=== PATIENT | female | born 1950 | race Two or more races ===

== ENCOUNTER 2024-10-28 18:16 | Emergency (ER) | payer OTHER ==
[~2024-10-28] VITALS: Ht 152.4 cm; Wt 52.1 kg
--- NOTE | 2024-10-28 18:46 | ED.PDOC ---
HPI (NEURO) HPI Comments 74y F who presents to the ED for chief complaint of R sided upper extremity weakness. - per daughter, pt was at family gathering and told family members she started to have R arm and R shoulder weakness at around [id number] - pt was taken to [facility] urgent care and referred to the ED for further evaluation - pt in the ED, notes, she has prior CVA 2 1/2 years prior with noted residual deficits of R facial weakness but otherwise no noted deficits. - pt in the ED, notes, this R arm and R shoulder weakness is new - pt daughter states pt was able to get up earlier this AM and get ready and was normal and alert and oriented and this weakness started only at [id number] this afternoon - pt denies use of any blood thinner at this time, per daughter Code stroke was activated immediately. 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 REVIEW OF SYSTEMS: CONSTITUTIONAL: Denies acute: fever, diaphoresis, chills, generalized weakness. HEAD: Denies acute: headache, photophobia Eyes: Denies acute: Double vision, vision loss, eye pain, eye discharge. EARS: Denies acute: tinnitus, hearing loss, ear discharge, ear pain, THROAT: Denies acute: sore throat, swelling, difficulty swallowing , pain with swallowing, change in voice. NECK: Denies acute: neck pain, neck swelling, stiff neck. HEART: Denies acute : chest pain, palpitations, LUNGS: Denies acute: SOB, wheezing, cough, hemoptysis ABDOMEN: Denies acute: abdominal pain, Nausea, Vomiting, diarrhea, melena , hematemesis, hematochezia SKIN: Denies acute: rash, redness, lesions, itchiness. EXTREMITIES: Denies acute: calf pain, numbness, tingling, weakness, denies pain in extremity. Denies acute: Low back pain. Neuro: Denies acute: tremors, seizure like activity, confusion, dizziness, change in mental status, loss of bowel or bladder function, cauda equina like symptoms. : Denies acute: dysuria, hematuria, flank pain, increase in urinary frequency. PSYCH: Denies acute: hallucination, suicidal ideation, homicidal ideation. FEMALE: Denies acute: abnormal vaginal bleeding, foul odor, unusual discharge. PHYSICAL EXAM: General: ----mild----acute distress, awake and alert. Head: normocephalic, atraumatic. Neck: supple, trachea is midline, no swelling. Throat: Normal phonation. Eyes:, no erythema, no purulent discharge, no proptosis, no icterus. Heart: regular rate, regular rhythm, no significant murmur appreciated. Lungs: no apparent respiratory distress, Able to speak in full sentences. No wheezing, no rhonchi, no crackles. No stridors Clear to auscultation bilaterally. Abdomen: non tender to palpation, non distended, soft, no guarding, no rebound, + bowel sounds. Neuro: Awake, Alert, oriented to name, self, situation, follows commands GCS=15. Speech is normal. Skin: no petechia, no purpura, no cyanosis, non-pale, not jaundice. Lower extremities: --no - Pitting edema no deformity, no focal swelling, no calf TTP. Makes eye contact. moves all four extremities. Face: Chronic right-sided facial droop with a previous stroke unchanged according to family. Ambulating in the ED independently. Stroke: finger to nose cerebellar testing is intact. But sluggish on the right upper extremity. 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 No nuchal rigidity, Kernig's sign, Brudzinski's sign, no meningeal signs. ED COURSE: At 7:30 p.m. I spoke with [facility] transfer team for higher level of care since we do not have Neurology in-house on the weekend. I spoke with Dr. Manriquez. They are unable to accept the patient because it is not an acute hemorrhagic or need for thrombolytics at this time. They are at capacity. We will continue to find other facilities with in house Neurology consultation At 8:15 p.m. The case was discussed with the [facility] ER team (HPI, physical exam, labs and diagnostic tests that were available at the time of disposition, ED course, treatment plan) on the phone. They agreed to a ccept the patient to their facility for neurological consultation not available in our facility on this weekend. Accepting physician is Dr. Guadarrama. At this time 8:40 p.m. case was discussed with the medicine team again. They still do not want to admit the patient to our facility because we do not have Neurology available this weekend in house. They have assessed the patient and believe that the patient is still have neurological deficits and complaints. 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 We will attempt to transfer the patient to higher level of care Chief Complaint: Right Sided Weakness Time Seen by MD: 18:44 Reviewed Notes: Nurses Notes, Allergies Information Source: Patient, Relative Mode of Arrival: Ambulatory Brought in by: daughter Was a procedure done? Was a procedure done?: No Differential Diagnosis (SZ) Seizure: N/A CVA: Other (Stroke: DDX include TIA, TGA, CVA, intracranial bleed/mass/infection, cerebellar ischemia/infarct, carotid stenosis, lacunar infarct, vertebral/carotid artery dissection,, vertebrobasillary insufficiency, BPV, encephalopathy, electrolyte abnormality, thyroid disease, hydrocephalus, [place] palsy, multiple sclerosis, hypoglycemia, drug toxicity, cardiac arrhythmia, todds paralysis, seizure.) X-Ray, Labs, Meds, VS Vital Signs Date Time Temp Pulse Resp B/P (MAP) Pulse Ox O2 Delivery O2 Flow Rate FiO2 10/28/24 21:30 98.4 79 20 114/49 (70) 92 98.4 10/28/24 20:55 87 22 95 Room Air* 0 21 10/28/24 20:30 98.0 81 18 114/49 (70) 93 98.0 10/28/24 19:30 98.0 83 19 149/66 (93) 92 98.0 10/28/24 18:57 Room Air* 0 21 10/28/24 18:55 98.4 88 22 153/64 (93) 94 98.4 10/28/24 18:21 98.5 81 18 176/88 (117) 96 98.5 Lab Test 10/28/24 21:39 10/28/24 19:52 10/28/24 18:54 10/28/24 18:27 Range/Units Troponin I High Sensitivity Pending 4 4 </=34 ng/L White Blood Count 9.8 4.4-10.8 10^3/uL Red Blood Count 5.21 H 4.0-5.20 10^6/uL Hemoglobin 15.9 12.2-16.2 g/dL Hematocrit 48.1 H 36.0-46.0 % Mean Corpuscular Volume 92.3 80.0-100.0 fL Mean Corpuscular Hemoglobin 30.5 28.0-32.0 pg Mean Corpuscular Hemoglobin Concent 33.0 32.0-36.0 g/dL Red Cell Distribution Width 14.2 11.8-14.3 % Platelet Count 254 140-450 10^3/uL Mean Platelet Volume 8.0 6.9-10.8 fL Neutrophils (%) (Auto) 53.3 37.0-80.0 % Lymphocytes (%) (Auto) 38.1 10.0-50.0 % Monocytes (%) (Auto) 5.9 0.0-12.0 % Eosinophils (%) (Auto) 2.1 0.0-7.0 % Basophils (%) (Auto) 0.6 0.0-2.0 % Neutrophils # (Auto) 5.2 1.6-8.6 10 ^3/uL Lymphocytes # (Auto) 3.7 0.4-5.4 10 ^3/uL Monocytes # (Auto) 0.6 0-1.3 10 ^3/uL Eosinophils # (Auto) 0.2 0-0.8 10 ^3/uL Basophils # (Auto) 0.1 0-0.2 10 ^3/uL Nucleated Red Blood Cells 0.1 % Prothrombin Time 10.1 9.3-11.8 sec Prothrombin Time INR 0.95 0.9-1.15 Activated Partial Thromboplast Time 27.1 24.5-34.5 SEC Sodium Level 138 136-145 mmol/L Potassium Level 4.6 3.5-5.1 mmol/L Chloride Level 104 98-107 mmol/L Carbon Dioxide Level 26 20-31 mmol/L Anion Gap 8 5-15 Blood Urea Nitrogen 20 9-23 mg/dL Creatinine 1.15 H 0.550-1.02 mg/dL Glomerular Filtration Rate Calc 50 >90 mL/min BUN/Creatinine Ratio 17.4 10.0-20.0 Serum Glucose 293 H 74-106 mg/dL Calcium Level 10.4 8.7-10.4 mg/dL Magnesium Level 2.2 1.6-2.6 mg/dL Total Bilirubin 0.4 0.2-1.0 mg/dL Aspartate Amino Transferase (AST) 21 13-40 U/L Alanine Aminotransferase (ALT) 24 7-40 U/L Alkaline Phosphatase 115 46-116 U/L B-Type Natriuretic Peptide 35.96 0-100 pg/mL Total Protein 7.5 5.7-8.2 g/dL Albumin 4.7 3.2-4.8 g/dL POC Glucose 255 H 70-106 mg/dl Current Medications Medications (Trade) Dose Ordered Sig/Mandeep Route Start Time Stop Time Status Last Admin Aspirin (Ecotrin Enteric Coated Tablet) 325 mg ONCE ONCE PO 10/28/24 19:15 10/28/24 19:19 DC 10/28/24 20:00 Clopidogrel Bisulfate (Plavix) 300 mg ONCE ONCE PO 10/28/24 19:30 10/28/24 19:34 DC 10/28/24 20:00 [place] [address] Ph: [phone] DIAGNOSTIC IMAGING Diagnostic Imaging Report : [id number] Signed PATIENT: DARNELL SR ACCT: [id number] UNIT: [id number] : 1950 LOC: ER ROOM / BED: / AGE / SEX: 74 / F ADM STATUS: REG ER SERVICE [id number] ORDERING PHYSICIAN: PIERO TRINIDAD DO PROCEDURE(s): CXR1 - CHEST XRAY 1 VIEW REASON: RUE weakness ORDER NUMBER(s): [id number], ACCESSION NUMBER(s): [id number] CHEST RADIOGRAPH Indication: RUE weakness Technique: Single frontal view of the chest was obtained Comparison: None FINDINGS: Lines and Tubes: None Lungs: No focal consolidation. Pleura: No effusion. No pneumothorax. Cardiomediastinal contours: Unremarkable Bones: No acute osseous abnormality. IMPRESSION: 1. No acute cardiopulmonary disease. ATED BY: TEOFILO HOANG Jr., DO DICTATED DATE/TIME: 10/28/241942 SIGNED BY: TEOFILO HOANG Jr., SIGNED DATE/TIME: 10/28/241942 CC: [address] [address] Ph: [phone] DIAGNOSTIC IMAGING Diagnostic Imaging Report : [id number] Signed PATIENT: DARNELL SR ACCT: [id number] UNIT: [id number] : 1950 LOC: ER ROOM / BED: / AGE / SEX: 74 / F ADM STATUS: REG ER SERVICE 32 ORDERING PHYSICIAN: PIERO TRINIDAD DO PROCEDURE(s): CTH - STROKE CTH REASON: RUE weakness ORDER NUMBER(s): [id number], ACCESSION NUMBER(s): [id number] CT STROKE CTH INDICATION: RUE weakness COMPARISON: None TECHNIQUE: CT of the head without intravenous contrast. RADIATION DOSE: CTDIvol: 51.21 mGy, DLP: 906.89 mGy*cm FINDINGS: No evidence of acute intracranial hemorrhage. No definite acute large territory infarct. There is a small cortical hypodense focus in the left parietal lobe (series 602, image 42) which is age-indeterminate. Mild periventricular and subcortical white matter hypoattenuation is nonspecific but commonly due to chronic microvascular ischemia. The ventricles, sulci and cisterns are age appropriate. Left choroid plexus cyst. CSF density over the bilateral frontal convexities is favored to represent enlargement of the subarachnoid space in the setting of mild cerebral volume loss. Mild atherosclerosis in the carotid siphons. Partially empty sella, commonly age-related. Streak artifact in the posterior fossa. The visualized paranasal sinuses and mastoid air cells are clear. The surrounding soft tissues and osseous structures are unremarkable. IMPRESSION: 1. No acute hemorrhage. No definite acute large territory infarct. 2. Small cortical hypoattenuating focus in the left parietal lobe. This is nonspecific and age-indeterminate. Consider further evaluation with MRI. Critical Result: Stroke Alert Findings discussed with Piero Trinidad, at 10/28/2024 07:11 PM, and acknowledged receipt and understanding of the findings. ATED BY: AJ SUE DO DICTATED DATE/TIME: 10/28/241914 SIGNED BY: AJ SUE DO SIGNED DATE/TIME: 10/28/241914 CC: Time of 1ST Reevaluation: 18:31 (The case was discussed with the stroke team (HPI, physical exam, labs and diagnostic tests that were available at the time of disposition, ED course, treatment plan) on the phone. They agreed to evaluate the patient on tele neuro camera. ) Reevaluation 1ST: Unchanged Time of 2ND Reevaluation: 19:22 (The neurologist called back and said to workup the patient for TIA and start aspirin and Plavix 300 mg then transitioned to 75 mg tomorrow.) Time of 3RD Reevaluation: 19:22 (Our hospitalist said that the patient can not be admitted to our facility since we do not have a neurologist on-call on the weekend. We will have to transfer the patient out.) Patient Education/Counseling: Diagnosis, Treatment Family Education/Counseling: Diagnosis, Treatment Comments Patient presented with the above HPI.--stroke-like symptoms----workup was initiated. patient was found with the above mentioned diagnosis. the following medications were ordered: please refer to order lists of meds and tests obtained by myself Dr. Trinidad. Patient ED course and VS have been stabilized. Patient has been reassessed in the ED and remained in a stable condition. Pertinent incidental findings were discussed with the patient and/or family. Patient/family voices understanding and is agreeable with plan. Patient has been observed in the ED adequate length of time to insure improvement/stability. Escalation of care considered: Consideration of escalation to observation or admission Patient was evaluated immediately on stroke protocol was activated immediately. Tele neurology were consulted. Medicine team was consulted and they requested that we transfer the patient to higher level of care. Patient was transferred to higher level of care since we do not have any neurology in house on the weekend. All the reports of any imaging studies that were ordered by myself were reviewed by myself. Departure 1 Departure Time of Disposition: 18:51 Impression: Primary Impression: Right arm weakness Disposition: 02 SHORT TERM HOSPITAL Admit to: Tele Condition: Guarded Discharged With: Self Critical Care Note Critical Care Time?: Yes (1 hr-critical care time only) Heart Score Heart Score: Heart Score Response (Comments) Value History Slightly Suspicious 0 EKG Normal 0 Age >65 2 Risk Factors >3 or Hx ASHD 2 Troponin Normal limit 0 Total 4 I personally scribed for PIERO TRINIDAD DO ([facility]) on 10/28/24 at 18:45. Electronically submitted by Kenneth Dee ([facility] I personally scribed for PIERO TRINIDAD DO ([facility]) on 10/28/24 at 20:05. Electronically submitted by Kenneth eDe ([facility] PIERO TRINIDAD DO Oct 28, 2024 18:45
[2024-10-28 19:11] LABS: Basophils # (auto) 0.1 10 ^3/uL (0-0.2); Basophils % (auto) 0.6 % (0.0-2.0); Eosinophils # (auto) 0.2 10 ^3/uL (0-0.8); Eosinophils % (auto) 2.1 % (0.0-7.0); Hematocrit 48.1 % (36.0-46.0); Hemoglobin 15.9 g/dL (12.2-16.2); Lymphocytes # (auto) 3.7 10 ^3/uL (0.4-5.4); Lymphocytes % (auto) 38.1 % (10.0-50.0); Mean Corpuscular Hemoglobin 30.5 pg (28.0-32.0); Mean Corpuscular Volume 92.3 fL (80.0-100.0); Monocytes # (auto) 0.6 10 ^3/uL (0-1.3); Monocytes % (auto) 5.9 % (0.0-12.0); Neutrophils # (auto) 5.2 10 ^3/uL (1.6-8.6); Neutrophils % (auto) 53.3 % (37.0-80.0); Nucleated Red Blood Cells % 0.1 %; Platelet Count (auto) 254 10^3/uL (140-450); Red Blood Cells 5.21 10^6/uL (4.0-5.20); Red Cell Distribution Width 14.2 % (11.8-14.3); White Blood Cell 9.8 10^3/uL (4.4-10.8)
--- NOTE | 2024-10-28 19:17 | DVH ---
CT STROKE CTH INDICATION: RUE weakness COMPARISON: None TECHNIQUE: CT of the head without intravenous contrast. RADIATION DOSE: CTDIvol: 51.21 mGy, DLP: 906.89 mGy*cm FINDINGS: No evidence of acute intracranial hemorrhage. No definite acute large territory infarct. There is a s mall cortical hypodense focus in the left parietal lobe (series 602, image 42) which is age-indeterm inate. Mild periventricular and subcortical white matter hypoattenuation is nonspecific but commonly due to chronic microvascular ischemia. The ventricles, sulci and cisterns are age appropriate. Left choroid plexus cyst. CSF density over th e bilateral frontal convexities is favored to represent enlargement of the subarachnoid space in the setting of mild cerebral volume loss. Mild atherosclerosis in the carotid siphons. Partially empty sella, commonly age-related. Streak collin fact in the posterior fossa. The visualized paranasal sinuses and mastoid air cells are clear. The surrounding soft tissues and osseous structures are unremarkable. IMPRESSION: 1. No acute hemorrhage. No definite acute large territory infarct. 2. Small cortical hypoattenuating focus in the left parietal lobe. This is nonspecific and age-indet erminate. Consider further evaluation with MRI. Critical Result: Stroke Alert Findings discussed with Piero Gregg, at 10/28/2024 07:11 PM, and acknowledged receipt and understandin g of the findings.
[2024-10-28 19:25] LABS: Alanine Aminotransferase 24 U/L (7-40); Albumin 4.7 g/dL (3.2-4.8); Alkaline Phosphatase 115 U/L (46-116); Anion Gap 8 (5-15); Aspartate Aminotransferase 21 U/L (13-40); BUN/Creatinine Ratio 17.4 (10.0-20.0); Blood Urea Nitrogen 20 mg/dL (9-23); Calcium 10.4 mg/dL (8.7-10.4); Carbon Dioxide 26 mmol/L (20-31); Chloride 104 mmol/L (98-107); Magnesium 2.2 mg/dL (1.6-2.6); Potassium 4.6 mmol/L (3.5-5.1); Sodium 138 mmol/L (136-145); Total Protein 7.5 g/dL (5.7-8.2)
[2024-10-28 19:26] LABS: Bilirubin, Total 0.4 mg/dL (0.2-1.0)
[2024-10-28 19:27] LABS: Glucose 293 mg/dL (74-106); INR 0.95 (0.9-1.15); Partial Thromboplastin Time 27.1 SEC (24.5-34.5); Prothrombin Time 10.1 sec (9.3-11.8)
--- NOTE | 2024-10-28 19:46 | DVH ---
CHEST RADIOGRAPH Indication: RUE weakness Technique: Single frontal view of the chest was obtained Comparison: None FINDINGS: Lines and Tubes: None Lungs: No focal consolidation. Pleura: No effusion. No pneumothorax. Cardiomediastinal contours: Unremarkable Bones: No acute osseous abnormality. IMPRESSION: 1. No acute cardiopulmonary disease.
--- NOTE | 2024-10-28 19:59 | BSKYNEURO ---
[place] [facility] Note # Demographics Consult Type: Acute Stroke Level 1 (0-4.5 hrs) Patient Location: Emergency Room First Name: DARNELL Last Name: ORIN Date of : 1950 Age: 74 Gender: Female Facility: [facility] Time of Initial Page (): 10/28/2024 18:35 Time of Return Call (): 10/28/2024 18:35 # HPI History: Right arm weakness noted today Right facial droop is chronic. Last Known Normal: 1430 pst # Scores Time of exam and NIHSS (): 10/28/2024 18:54 Level of Consciousness 1a: [0] = Alert; keenly responsive LOC Questions 1b: [0] = Answers both questions correctly LOC Commands 1c: [0] = Performs both tasks correctly Best Gaze 2: [0] = Normal Visual 3: [0] = No visual loss Facial Palsy 4: [2] = Partial paralysis Motor Arm Left 5a: [0] = No drift Motor Arm Right 5b: [0] = No drift Motor Leg Left 6a: [0] = No drift Motor Leg Right 6b: [0] = No drift Limb Ataxia 7: [0] = Absent Sensory 8: [0] = Normal Best Language 9: [0] = No aphasia Dysarthria 10: [0] = Normal Extinction and Inattention 11: [0] = No abnormality NIHSS Total: 2 # Exam Vitals: vital signs reviewed # [facility]-- Past Medical History: - Diabetes - hypertension - hyperlipidemia # Data Head CT: - no bleed - per radiologist read - preliminarily reviewed by me, please refer to radiology read for official reading # Assessment Impression: - Ischemic Stroke (Acute) - Transient Ischemic Attack # Plan Thrombolytic/Intervention: Possible IA candidate Thrombolytic Exclusion (< 3 hour window): - non-disabling deficit Possible IA Candidate: - no signs and symptoms of LVO - CTA pending Target Blood Pressure: SBP < 180 Labs: - hemoglobin A1c - lipid panel Imaging: (urgency: STAT): - CT Angiogram Head and CT Angiogram Neck AND call back with results if abnormal Diagnostic Test: - echo with bubble study - echo without bubble study Therapy/Evaluation: - NPO until swallow evaluation - PT/OT evaluation - speech/swallow consultation Medication: - start statin with goal of LDL < 70 - Plavix 300 mg PO x1 now, then 75 mg daily x 21 days + asa 81mg x 21 days, followed by monotherapy thereafter Other: - If patient has any neurological deterioration please call me back immediately - I have discussed my recommendations with the referring provider - telemetry monitoring - LDL < 70 Disposition: observation # Logistics Attestation of consult completion: The patient is located at: [facility]. Facility staff participated in the visit. I performed this telemedicine visit from my offsite office utilizing interactive 2 way audio and visual telecommunication technology. Total time spent in telemedicine encounter: I spent 21 minutes reviewing clinical data and/or imaging, obtaining history, examining the patient, communicating with the onsite care team, and in preparation of this report. Critical Care time: 21 minutes of this encounter were critical care time. Due to a high probability of clinically significant, life-threatening neurologic deterioration, the patient required my highest level of preparedness to intervene emergently. I spent this critical care time managing the patient in conjunction with on-site providers who requested my consultation. In addition to the above, this critical care time included recommendation and review of studies, including imaging; arranging an urgent treatment and management plan with on-site providers; evaluation of patient's response to treatment; and documentation. This critical care time was performed to assess and manage the high probability of imminent, life-threatening deterioration that could result in neurologic catastrophe. # Demographics First Name: DARNELL Last Name: ORIN Facility: [facility] Electronically signed at 10/28/2024 19:59 ([place] Time) by Federico Hernandez MD Yes DAMARI HERNANDEZ MD Oct 28, 2024 19:59
[2024-10-28] MEDS: ASPirin-EC 325mg tab PO ONE (20:00)
[2024-10-28] MEDS: CLOPIDOGREL BISULFATE 75 MG TAB PO ONE (20:00)
[2024-10-28 20:55] VITALS: PULSE 87; RESP 22; O2SAT 95
[2024-10-29 00:30] VITALS: BP 121/64; PULSE 67; RESP 17; TEMP 98.4; O2SAT 94
== END 2024-10-29 00:56 | disposition short-term general hospital (02) ==
LOC: ER 18:21
DX: R53.1 Weakness (principal); R29.810 Facial weakness; I10 Essential (primary) hypertension; E11.9 Type 2 diabetes mellitus without complications; R06.02 Shortness of breath; Z90.710 Acquired absence of both cervix and uterus; Z88.0 Allergy status to penicillin
CPT/HCPCS: 36415; 70450; 71045; 80053; 82947; 82962; 83735; 83880; 84484; 85025; 85610; 85730